=== PATIENT | male | born 2000 | race Caucasian/White ===

== ENCOUNTER 2020-04-11 15:32 | Emergency (ER) | payer BC ==
[2020-04-11] MEDS ORDERED: Orphenadrine 100 MG Tab.ER PO ONE (15:53)
[2020-04-11] MEDS ORDERED: Ketorolac 30 MG/ML SDV IM ONE (15:53)
--- NOTE | 2020-04-11 15:58 | EDM.PDOC ---
ED HPI GENERAL MEDICAL PROBLEM - General Chief Complaint: Back Pain or Injury Stated Complaint: BACK PAIN Time Seen by Provider: 04/11/20 15:41 Source of Information: Reports: Patient, RN Notes Reviewed History Limitations: Reports: No Limitations - History of Present Illness INITIAL COMMENTS - FREE TEXT/NARRATIVE: Patient is a 20-year-old male who presents to the ED for the evaluation of his mid back pain. Patient notes that around 4 or 5 AM this morning, he was long boarding, and he developed some cramping/spasm type pain in his mid back, he states it is worse to the left as well. He denies it radiating anywhere else. He denies any trauma falls or injury that he may have had. He states that moving, and/or twisting his back seems to aggravate the pain. He states that it is mildly difficult or painful also to take a deep breath. He denies any shortness of breath, cough, fever/chills, or any other sick-like symptoms. He did not take any sort of medications for the pain at home. Middle Back Pain Score (Numeric/FACES): 9 - Related Data Allergies Allergy/AdvReac Type Severity Reaction Status Date / Time No Known Allergies Allergy Verified 04/11/20 15:40 Home Meds: Home Meds Orphenadrine [Norflex] 100 mg PO BID PRN #20 tab 04/11/20 [Rx] Past Medical History - Past Health History Medical/Surgical History: Denies Medical/Surgical History - Past Surgical History Other Musculoskeletal Surgeries/Procedures:: fracture collarbone Social & Family History - Family History Family Medical History: Noncontributory - Tobacco Use Tobacco Use Within Last Twelve Months: Vaping - Caffeine Use Caffeine Use: Reports: Soda - Alcohol Use Alcohol Use History: No - Recreational Drug Use Recreational Drug Use: No ED ROS GENERAL - Review of Systems Review Of Systems: Comprehensive ROS is negative, except as noted in HPI. ED EXAM,LOWER BACK PAIN/INJURY - Physical Exam Exam: See Below Exam Limited By: No Limitations General Appearance: Alert, WD/WN, No Apparent Distress Eye Exam: Bilateral Eye: EOMI, Normal Inspection, PERRL Respiratory/Chest: No Respiratory Distress, Lungs Clear, Normal Breath Sounds, No Accessory Muscle Use, Chest Non-Tender Cardiovascular: Normal Peripheral Pulses, Regular Rate, Rhythm, No Murmur Back Exam: Normal Inspection, Full Range of Motion, Muscle Spasm (noted to mid back, worse on left side of spine) Extremities: Normal Inspection, Normal Capillary Refill Neurological: Alert, Normal Mood/Affect, No Motor/Sensory Deficits, Oriented x 3 Psychiatric: Normal Affect, Normal Mood Skin Exam: Warm, Dry, Intact, Normal Color, No Rash Course - Vital Signs Last Recorded V/S: Last Vital Signs Temp 98.4 F 04/11/20 15:40 Pulse 79 04/11/20 15:40 Resp 13 04/11/20 15:40 BP 117/76 04/11/20 15:40 Pulse Ox 100 04/11/20 15:40 - Orders/Labs/Meds Meds: Medications Discontinued Medications Generic Name Dose Route Start Last Admin Trade Name Mario Alberto PRN Reason Stop Dose Admin Ketorolac Tromethamine 60 mg 04/11/20 15:53 04/11/20 16:05 Toradol IM 04/11/20 15:54 60 mg ONETIME ONE Administration Orphenadrine Citrate 100 mg 04/11/20 15:53 04/11/20 16:04 Norflex PO 04/11/20 15:54 100 mg ONETIME ONE Administration - Re-Assessments/Exams Free Text/Narrative Re-Assessment/Exam: 04/11/20 15:57 Patient presents to the ED for evaluation of his back pain. Will try 60 mg IM Toradol and 100 mg p.o. Norflex for initial management, highly suspect some sort of musculoskeletal injury due to his long boarding use. Patient be reassessed after the medications have been given time to work. 04/11/20 16:30 Patient reports some pain improvement at this time, He will be discharged with general recommendations. Departure - Departure Time of Disposition: 16:30 Disposition: Home, Self-Care 01 Condition: Good Clinical Impression: Mid back pain on left side, Muscle spasm - Discharge Information *PRESCRIPTION DRUG MONITORING PROGRAM REVIEWED*: No *COPY OF PRESCRIPTION DRUG MONITORING REPORT IN PATIENT FOREIGN: No Prescriptions: Orphenadrine [Norflex] 100 mg PO BID PRN #20 tab PRN Reason: Spasms Instructions: Back Injury Prevention, [id number], Muscle Cramps and Spasms, [id number] Referrals: PCP,None [Primary Care Provider] - Forms: ED Department Discharge Additional Instructions: You have been evaluated in the ED for your mid back pain. Please use ice/heat as tolerated to the affected area. You may take Tylenol 500 mg or ibuprofen 600mg q6 hrs for pain relief. Please do so until you have a tolerable level of pain with activity. Do not exceed 4000mg Tylenol or 3200mg ibuprofen in a 24 hour time period. You have been given a script for Norflex, please take 1 tab 2 times daily for muscle spasms. Recommend that you follow up with a chiropractor early next week if your symptoms aren't getting much better. Please return to ED if your symptoms should change or worsen. Sepsis Event Note (ED) - Evaluation Sepsis Screening Result: No Definite Risk - Focused Exam Vital Signs: Vital Signs Temp Pulse Resp BP Pulse Ox 04/11/20 15:40 98.4 F 79 13 117/76 100
== END 2020-04-11 16:47 | disposition home or self-care (01) ==
LOC: JD.ED 15:32
DX: M62.830 Muscle spasm of back (principal); F17.290 Nicotine dependence, other tobacco product, uncomplicated
CPT/HCPCS: 96372; 99283; A9270; J1885

== ENCOUNTER 2021-10-18 02:56 | Emergency (ER) | payer BC ==
[2021-10-18] MEDS ORDERED: Dexamethasone 10 MG/ML SDV IM ONE (03:24)
--- NOTE | 2021-10-18 03:26 | EDM.PDOC ---
ED HPI GENERAL MEDICAL PROBLEM - General Chief Complaint: ENT Problem Stated Complaint: THROAT/TONSIL ISSUES Time Seen by Provider: 10/18/21 03:24 Source of Information: Reports: Patient History Limitations: Reports: No Limitations - History of Present Illness INITIAL COMMENTS - FREE TEXT/NARRATIVE: Patient is 21-year-old male with no significant past medical history presenting with a chief complaint of throat pain and swollen tonsils. Duration of symptoms has been since Tuesday. Pain is worse with swallowing. Patient denies any associated fevers, nausea, vomiting. He has no cough. No past history of tonsillar or throat surgery. [id number] pain medication only provide mild relief. Throat Pain Score (Numeric/FACES): 6 - Related Data Allergies Allergy/AdvReac Type Severity Reaction Status Date / Time No Known Allergies Allergy Verified 10/18/21 03:14 Home Meds: Home Meds . [No Known Home Meds] 10/18/21 [History] Past Medical History - Past Health History Medical/Surgical History: Denies Medical/Surgical History - Past Surgical History Other Musculoskeletal Surgeries/Procedures:: fracture collarbone Social & Family History - Family History Family Medical History: No Pertinent Family History - Caffeine Use Caffeine Use: Reports: Soda ED ROS ENT - Review of Systems Review Of Systems: Comprehensive ROS is negative, except as noted in HPI. ED EXAM, ENT - Physical Exam Exam: See Below Text/Narrative:: I have reviewed the triage vital signs Const: Well nourished, well developed, appears stated age Eyes: Pupils Equal and reactive to light bilaterally, no conjunctival injection HENT: Bilateral tonsillar swelling with exudates. Voice is normal. Uvula is midline. There is no drooling or tongue swelling. No signs of trauma or swelling, Neck supple without meningismus CV: Regular Rate Rhythm, Warm, well-perfused extremities RESP: Unlabored respiratory effort MSK: No gross deformities appreciated Skin: Warm, dry. 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 Psych: Appropriate mood and affect. Course - Vital Signs Last Recorded V/S: Last Vital Signs Temp 36.6 C 10/18/21 03:12 Pulse 105 H 10/18/21 03:12 Resp 16 10/18/21 03:12 BP 128/80 10/18/21 03:12 Pulse Ox 94 L 10/18/21 03:12 - Orders/Labs/Meds Orders: Active Orders 24 hr Category Date Time Status THROAT CULTURE [MREF] Stat Lab 10/18/21 03:10 Received Labs: Laboratory Tests 10/18/21 10/18/21 Range/Units 03:10 04:05 Monoscreen Positive H (NEGATIVE) Group A Strep (PCR) Not detected (NOT DETECT) Meds: Medications Discontinued Medications Generic Name Dose Route Start Last Admin Trade Name Mario Alberto PRN Reason Stop Dose Admin Dexamethasone 10 mg 10/18/21 03:24 10/18/21 03:36 Dexamethasone 10 Mg/Ml Sdv IM 10/18/21 03:25 10 mg ONETIME ONE Administration Departure - Departure Time of Disposition: 04:35 Disposition: Home, Self-Care 01 Clinical Impression: Mononucleosis syndrome - Discharge Information Instructions: Infectious Mononucleosis Referrals: PCP,None [Primary Care Provider] - Forms: ED Department Discharge Additional Instructions: Use ibuprofen and Tylenol every 6-8 hours for symptom relief. Return to the emergency room for worsening symptoms or any other emergent concerns. Sepsis Event Note (ED) - Evaluation Sepsis Screening Result: No Definite Risk - Focused Exam Vital Signs: Vital Signs Temp Pulse Resp BP Pulse Ox 10/18/21 03:12 36.6 C 105 H 16 128/80 94 L - My Orders Last 24 Hours: My Active Orders 10/18/21 03:10 THROAT CULTURE [MREF] Stat - Assessment/Plan Last 24 Hours: My Active Orders 10/18/21 03:10 THROAT CULTURE [MREF] Stat Assessment:: Patient is a 21-year-old male with sore throat. Patient tested positive for mononucleosis. No evidence of airway obstruction. Dexamethasone given for symptom relief. Discharged with outpatient follow-up. Return precautions discussed as usual. Patient agrees with plan of care.
== END 2021-10-18 04:40 | disposition home or self-care (01) ==
LOC: JD.ED 02:56
DX: B27.90 Infectious mononucleosis, unspecified without complication (principal)
CPT/HCPCS: 36415; 86308; 87070; 87651; 96372; 99283; J1100

== ENCOUNTER 2021-10-19 14:56 | Emergency (ER) | payer BC ==
[2021-10-19 16:56] LABS: CORONAVIRUS COVID-19 NAA NEGATIVE (NEGATIVE)
[2021-10-19] MEDS ORDERED: Ketorolac 60 MG/2 ML SDV IM ONE (17:33)
--- NOTE | 2021-10-19 17:37 | EDM.PDOC ---
ED HPI GENERAL MEDICAL PROBLEM - General Chief Complaint: Respiratory Problem Stated Complaint: SORE THROAT\ HEADACHE Time Seen by Provider: 10/19/21 16:05 Source of Information: Reports: Patient History Limitations: Reports: No Limitations - History of Present Illness INITIAL COMMENTS - FREE TEXT/NARRATIVE: 21-year-old male presents the emergency department with complaints of worsening sore throat, headache, swollen lymph nodes and abdominal pain and back pain. Patient was seen and evaluated here in the emergency department on 10/18/2021 and diagnosed with mono. Strep screen was also completed and this was negative. Patient denies, fever, chills, nausea, vomiting or diarrhea. States he has been taking ibuprofen every 4-8 hours as needed. States he does vape daily and is otherwise healthy. Treatments CHILLER HAND: Reports: NSAIDS Headache Pain Score (Numeric/FACES): 6 Throat Pain Score (Numeric/FACES): 9 Middle Back Pain Score (Numeric/FACES): 5 Abdomen Pain Score (Numeric/FACES): 7 - Related Data Allergies Allergy/AdvReac Type Severity Reaction Status Date / Time No Known Allergies Allergy Verified 10/18/21 03:14 Home Meds: Home Meds . [No Known Home Meds] 10/18/21 [History] Past Medical History - Past Health History Medical/Surgical History: Denies Medical/Surgical History - Past Surgical History Other Musculoskeletal Surgeries/Procedures:: fracture collarbone Social & Family History - Family History Family Medical History: No Pertinent Family History - Tobacco Use Tobacco Use Status *Q: Current Every Day Tobacco User Years of Tobacco use: 3 Packs/Tins Daily: 0.5 - Caffeine Use Caffeine Use: Reports: Coffee, Energy Drinks, Soda, Tea - Recreational Drug Use Recreational Drug Use: No ED ROS GENERAL - Review of Systems Review Of Systems: Comprehensive ROS is negative, except as noted in HPI. ED EXAM, GENERAL - Physical Exam Exam: See Below Exam Limited By: No Limitations General Appearance: Alert, WD/WN, Mild Distress Ears: Normal External Exam, Hearing Grossly Normal Ear Exam: Bilateral Ear: Auricle Normal, Canal Normal, TM normal Nose: Normal Inspection, Normal Mucosa Throat/Mouth: Normal Inspection, Normal Lips, Normal Teeth, Normal Gums, Normal Voice, No Airway Compromise, Inflammation, Other (Exudate noted to right tonsil and edema noted to bilateral tonsils) Head: Atraumatic, Normocephalic Neck: Normal Inspection, Supple, Other (Lymphadenopathy noted to posterior cervical chain) Respiratory/Chest: No Respiratory Distress, Lungs Clear, Normal Breath Sounds, No Accessory Muscle Use, Chest Non-Tender Cardiovascular: Normal Peripheral Pulses, Regular Rate, Rhythm, No Edema, No Murmur Peripheral Pulses: 2+: Radial (L), Radial (R) GI/Abdominal: Normal Bowel Sounds, Soft, Non-Tender, No Distention (Male) Exam: Deferred Rectal (Males) Exam: Deferred Back Exam: Normal Inspection Extremities: Normal Inspection, Normal Range of Motion, Non-Tender, No Pedal Edema, Normal Capillary Refill Neurological: Alert, Oriented, Normal Cognition Psychiatric: Normal Affect, Normal Mood Skin Exam: Warm, Dry, Intact, Normal Color, No Rash Lymphatic: No Adenopathy Course - Vital Signs Text/Narrative:: As stated above, patient presents with headache, sore throat and backache. Was diagnosed with mono yesterday. Patient states he is starting to feel worse today. Physical exam reveals erythema and edema with exudate noted to the right tonsil. Posterior cervical lymph nodes are appreciated. Tympanic membranes are unremarkable. Heart and lungs are unremarkable. Will obtain a Covid and influenza swab on this patient. Last Recorded V/S: Last Vital Signs Temp 98.5 F 10/19/21 15:44 Pulse 93 10/19/21 15:44 Resp 20 10/19/21 15:44 BP 127/76 10/19/21 15:44 Pulse Ox 100 10/19/21 15:44 - Orders/Labs/Meds Labs: Laboratory Tests 10/19/21 Range/Units 15:55 Influenza Type A RNA Negative (NEGATIVE) Influenza Type B RNA Negative (NEGATIVE) SARS-CoV-2 RNA (TRAVIS) Negative (NEGATIVE) - Re-Assessments/Exams Free Text/Narrative Re-Assessment/Exam: 10/19/21 17:36 Covid and influenza testing is negative. I have ordered for the patient to receive Toradol 60 mg IM x1 dose. Patient will be discharged to home with recommendations that he get rest, drink plenty of fluids, alternate Tylenol and ibuprofen every 4 hours as needed for discomfort. Departure - Departure Time of Disposition: 17:37 Disposition: Home, Self-Care 01 Condition: Good Clinical Impression: Mononucleosis syndrome - Discharge Information Instructions: Infectious Mononucleosis Referrals: PCP,None [Primary Care Provider] - Additional Instructions: You were seen in the emergency department today with worsening symptoms related to mononucleosis. Covid and influenza swabs were completed and these were negative. Recommend that you go home and get plenty of rest, drink plenty of fluids and eat small frequent meals. Alternate taking ibuprofen 600 mg every 4 hours with Tylenol 650 mg for pain and fever. May use Chloraseptic spray to the throat for discomfort. You will likely start to feel better in 10 days time. As discussed, this is a viral infection and cannot be treated with antibiotics. Sepsis Event Note (ED) - Focused Exam Vital Signs: Vital Signs Temp Pulse Resp BP Pulse Ox 10/19/21 15:44 98.5 F 93 20 127/76 100
== END 2021-10-19 18:08 | disposition home or self-care (01) ==
LOC: JD.ED 14:56
DX: B27.90 Infectious mononucleosis, unspecified without complication (principal); Z72.0 Tobacco use; Z20.822 Contact with and (suspected) exposure to COVID-19
CPT/HCPCS: 0240U; 96372; 99284; J1885

== ENCOUNTER 2021-10-22 02:39 | Emergency (ER) | payer BC ==
--- NOTE | 2021-10-22 03:37 | EDM.PDOC ---
ED HPI GENERAL MEDICAL PROBLEM - General Chief Complaint: ENT Problem Stated Complaint: MONO/SWOLLEN TONSILS Time Seen by Provider: 10/22/21 03:07 Source of Information: Reports: Patient History Limitations: Reports: No Limitations - History of Present Illness INITIAL COMMENTS - FREE TEXT/NARRATIVE: The patient presents with mono, sore throat and spiting up blood. He was diagn osed with mono on the . He was put on some dexamethasone. He was seen the next day and was negative for influenza and COVID. He comes back today because the pain and swelling are not better. He is not spitting up some blood. He ate a salad tonight. He has no fever or chills any more. He has no chest pain, cough, shortness of breath, abdominal pain nausea or vomiting. 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 [No Known Home Meds] 10/18/21 [History] Past Medical History - Past Health History Medical/Surgical History: Denies Medical/Surgical History - Infectious Disease History Infectious Disease History: Reports: Mononucleosis - Past Surgical History Other Musculoskeletal Surgeries/Procedures:: fracture collarbone Social & Family History - Family History Family Medical History: No Pertinent Family History - Tobacco Use Tobacco Use Status *Q: Current Every Day Tobacco User Years of Tobacco use: 3 Packs/Tins Daily: 1 - Caffeine Use Caffeine Use: Reports: Coffee, Energy Drinks, Soda, Tea - Recreational Drug Use Recreational Drug Use: No ED ROS ENT - Review of Systems Review Of Systems: See Below Constitutional: Reports: Malaise, Weakness, Fatigue. Denies: Fever, Chills HEENT: Reports: Throat Pain Respiratory: Reports: No Symptoms Cardiovascular: Reports: No Symptoms Endocrine: Reports: No Symptoms GI/Abdominal: Reports: No Symptoms : Reports: No Symptoms Musculoskeletal: Reports: No Symptoms Skin: Reports: No Symptoms Neurological: Reports: No Symptoms ED EXAM, ENT - Physical Exam Exam: See Below Exam Limited By: No Limitations General Appearance: Alert, No Apparent Distress Ears: Normal External Exam Nose: Normal Inspection Mouth/Throat: Other (Erythema and edema of the oropharynx and tonsills with a blood clot behind the left tonsil.) Head: Atraumatic, Normocephalic Neck: Lymphadenopathy (L), Lymphadenopathy (R) Respiratory/Chest: No Respiratory Distress, Lungs Clear, Normal Breath Sounds Cardiovascular: Regular Rate, Rhythm, No Edema, No Rub GI/Abdominal: Soft, Non-Tender, No Organomegaly Back: Normal Inspection Extremities: Normal Inspection Neurological: Alert, Oriented Course - Vital Signs Last Recorded V/S: Last Vital Signs Temp 97.8 F 10/22/21 03:10 Pulse 109 H 10/22/21 03:10 Resp 18 10/22/21 03:10 BP 131/89 10/22/21 03:10 Pulse Ox 92 L 10/22/21 03:10 - Re-Assessments/Exams Free Text/Narrative Re-Assessment/Exam: 10/22/21 03:36 I had the patient gargle with ice water a couple of times. It appears the bleeding has slowed down. 10/22/21 03:47 The bleeding has slowed some. He is coughing and having nausea. I will give him some phenergan with codeine to help with both out of instymed. Departure - Departure Time of Disposition: 03:55 Disposition: Home, Self-Care 01 Condition: Good Clinical Impression: Mononucleosis syndrome, Nausea - Discharge Information *PRESCRIPTION DRUG MONITORING PROGRAM REVIEWED*: Not Applicable *COPY OF PRESCRIPTION DRUG MONITORING REPORT IN PATIENT FOREIGN: Not Applicable Referrals: PCP,None [Primary Care Provider] - Jarek Meneses MD [Physician] - 2 Days Forms: ED Department Discharge Additional Instructions: Keep using the dexamethasone. Drink plenty of fluids. Stick to a liquid diet for 3 to 5 days. You have swelling and some bleeding to the back of the throat. You do not want any hard foods making this worse. If you have more bleeding, gargle with ice water that should help. Use the phenergan with codeine for pain, cough or nausea. Please return if you are worse. Sepsis Event Note (ED) - Evaluation Sepsis Screening Result: No Definite Risk - Focused Exam Vital Signs: Vital Signs Temp Pulse Resp BP Pulse Ox 10/22/21 03:10 97.8 F 109 H 18 131/89 92 L
== END 2021-10-22 04:00 | disposition home or self-care (01) ==
LOC: JD.ED 02:39
DX: B27.90 Infectious mononucleosis, unspecified without complication (principal); R11.0 Nausea; Z72.0 Tobacco use
CPT/HCPCS: 99283